=== PATIENT | male | born 1985 | race Caucasian/White ===

== ENCOUNTER 2016-08-03 19:34 | Emergency (ER) | payer OTHER ==
--- NOTE | ~2016-08-03 | CT71 ---
[facility] A Service of [facility] RADIOLOGY TEXT RESULTS PATIENT: SARIKA JIMENEZ LOCATION: SED : 85 UNIT #: [id number] AGE: [address]: Oumar White MD SEX: M ORDER DR: [id number] [place] [id number] E MR#: [id number] #: [id number] NAME: SARIKA JIMENEZ : 1985 SEX: M STUDY DATE/TIME: 08/03/2016 19:59 UNIT: SED ROOM: STUDY DESCRIPTION: CT Head Wo Contrast Attending Physician: Oumar White M.D. Ordering Physician: Oumar White M.D. Primary Care Physician: Primary Care Physician No MEDICAL IMAGING REPORT This report is preliminary unless electronic signature is present. EXAM CT brain without contrast media HISTORY Seizure beginning today. History of diabetes. TECHNIQUE Transaxial imaging of the brain was performed without contrast media. This CT exam was performed with one or more of the following radiation dose reduction techniques: automatic exposure control, adjustment of mA and/or kV according to patient size, and iterative reconstruction. COMPARISON The patient has no previous studies for comparison. FINDINGS Ventricular size and configuration is normal. No intra or extraaxial mass lesions, fluid collections or mass effect are seen. No focal areas of low attenuation or evidence of acute intracranial hemorrhage. CONCLUSION Normal noncontrast CT of the brain. Dictated by... Oumar Davis M.D. THIS IS AN ELECTRONICALLY VERIFIED REPORT Oumar Davis M.D. at 08/07/2016 5:10 PM Ren TD: 08/04/2016 08:55 JOB #: [id number] [facility] A Service [facility] RADIOLOGY TEXT RESULTS PATIENT: SARIKA JIMENEZ LOCATION: SED : 85 UNIT #: [id number] AGE: [address]: Oumar White MD SEX: M ORDER DR: MEDICAL IMAGING REPORT
--- NOTE | ~2016-08-03 | EKG ---
PATIENT: SARIKA JIMENEZ UNIT #: [id number] Ventricular Rate: 91 BPM Atrial Rate: 91 BPM P-R Interval: 168 ms QRS Duration: 86 ms Q-T Interval: 384 ms QTC Calculation(Bezet): 472 ms P Nebo: 42 degrees Calculated R Nebo: -2 degrees Calculated T Nebo: 38 degrees Diagnosis Line: Normal sinus rhythm Diagnosis Line: Possible Left atrial enlargement Diagnosis Line: Left ventricular hypertrophy Diagnosis Line: Abnormal ECG Diagnosis Line: When compared with ECG of 06-MAR-2010 00:26, Diagnosis Line: No significant change was found Diagnosis Line: Confirmed by ANGELIKA DUMONT MD ([id number]) on Diagnosis Line: 08/05/2016 2:52:14 PM INTERPRETING MD: JULIA COOK
[~2016-08-03 19:34] MED LIST: LEVEMIR100 UNITS/; NOVOLIN 70/30 V10 M1 SQ; NOVOLOG100 U/M3 SQ
[2016-08-03 20:00] LABS: BASOPHIL% 0.4 % (0-2.5); EOSINOPHIL% 0.4 % (0.0-7.0); HEMATOCRIT 46.6 % (38.0-50.0); HEMOGLOBIN 15.4 gm/dL (13.0-16.0); LYMPHOCYTE# 1.4 X10e3 (1.0-3.5); LYMPHOCYTE% 31.3 % (17.0-45.0); MEAN CELL VOLUME 93.9 FL (83-96); MEAN PLATELET VOLUME 8.1 FL (6.5-11.5); MONOCYTE# 0.3 X10e3 (0-1.0); MONOCYTE% 6.8 % (3.0-12.0); NEUTROPHIL# 2.8 X10e3 (1.5-7.1); NEUTROPHIL% 61.1 % (40-75); PLATELET COUNT 305 X10e3 (140-420); RED BLOOD COUNT 4.97 X10e (3.90-5.60); RED CELL DISTRIBUTION WIDTH 12.9 % (11.0-15.5); WHITE BLOOD COUNT 4.6 X10e3 (4.0-10.5)
[2016-08-03 20:01] LABS: DIFF IND NO
[2016-08-03 20:08] LABS: BLOOD UREA NITROGEN 12 mg/dL (9-23); CALCIUM SERUM 8.7 mg/dL (8.4-10.2); CARBON DIOXIDE 22 mmol/L (22-31); CHLORIDE 102 mmol/L (100-111); GLOM FILT RATE Estimated ABOVE60 mL/min (>60); GLUCOSE FASTING 223 mg/dL (70-110); POTASSIUM 3.9 mmol/L (3.5-5.1); SODIUM 135 mmol/L (135-145)
[2016-08-03 20:10] LABS: ALCOHOL BLOOD <5 mg/dL (0)
[2016-08-03 20:21] LABS: POC - CKMB 1.4 ng/mL (0.0-7.9); POC - TROPONIN <0.05 ng/mL (<=0.05)
[2016-08-03 21:02] LABS: INFLUENZA A NEG (NEG); INFLUENZA B NEG (NEG)
[2016-08-03 21:28] LABS: URINE SOURCE CLEAN CATCH
[2016-08-03 21:33] LABS: URINE APPEARANCE CLEAR; URINE BILIRUBIN NEG (NEG); URINE BLOOD NEG (NEG); URINE COLOR YELLOW; URINE GLUCOSE 300 MG/DL (NORM); URINE KETONE 1+ (NEG); URINE LEUKOCYTE ESTERASE NEG (NEG); URINE NITRATE NEG (NEG); URINE PROTEIN NEG (NEG); URINE UROBILINOGEN 0.2 MG/DL (NORM)
[2016-08-03 21:35] LABS: MICRO INDICATED? NO
[2016-08-03 21:46] LABS: AMPHETAMINE NEG (NEG); BARBITURATES NEG (NEG); BENZODIAZEPINES NEG (NEG); COCAINE NEG (NEG); MARIJUANA NEG (NEG); OPIATES NEG (NEG); TRICYCLIC ANTIDEPRESSANTS NEG (NEG); U METHADONE NEG (NEG)
== END 2016-08-03 22:58 | disposition home or self-care (01) ==
LOC: SED 19:34
PROVIDERS: Emergency Medicine
DX: R56.9 Unspecified convulsions (principal); E11.9 Type 2 diabetes mellitus without complications
CPT/HCPCS: 36415; 70450; 80048; 80307; 81003; 82553; 82947; 83735; 83874; 84484; 85025; 87040; 87804; 93005; 96374; 99284; G0480; J2405

== ENCOUNTER → 2016-12-07 | Outpatient (CLI) | payer OTHER ==
--- NOTE | ~2016-12-07 | EE ---
Unit #: [id number] #: [id number] Patient: SARIKA JIMENEZ [id number] [address] [address] [id number] O MR#: [id number] NAME: SARIKA JIMENEZ : 1985 SEX: M STUDY DATE/TIME: 12/13/2016 UNIT: CEEG ROOM: STUDY DESCRIPTION: EEG Attending Physician: Nathan Phillip II., M.D. Referring Physician: Nathan Phillip II., M.D. Primary Care Physician: Jn Rosenthal M.D. NEURODIAGNOSTICS REPORT EXAM EEG DATE OF STUDY 12/07/16 REASON FOR STUDY Seizures. TECH Megan. TECHNICAL INFORMATION This is a routine EEG performed using the standard International 10-20 system of electrode placement. Photic stimulation was performed. Hyperventilation was also performed. REPORT Throughout the entire study, the best background rhythm seen is approximately 9 Hz. This rhythm was seen in both posterior head regions symmetrically and does attenuate to eye opening and closure. Hyperventilation was performed, which did not elicit any abnormal buildup. Photic stimulation was also performed, which did not elicit any epileptiform abnormalities. However, a good photic driving response was seen. No sleep was recorded during the EEG. Throughout the entire study, there are no electrographic seizures recorded nor were there any independent epileptiform abnormalities seen. INTERPRETATIONS Normal EEG. A normal awake EEG does not rule out the possibility of a seizure disorder. Clinical correlation is advised. Dictated by... Nathan Phillip II., M.D. GWS/minal TD: 12/13/2016 13:12 JOB #: [id number] Unit #: [id number] #: [id number] Patient: SARIKA JIMENEZ NEURODIAGNOSTICS REPORT Page 1 of 1 X NEURODIAGNOSTICS REPORT
== END | disposition home or self-care (01) ==
LOC: CEEG 06:58
DX: R56.9 Unspecified convulsions (principal)
CPT/HCPCS: 95816